=== PATIENT | female | born 1970 | race Caucasian/White ===

== ENCOUNTER 2021-02-02 17:18 | Emergency (ER) | payer MEDICAID, MEDICARE ==
[~2021-02-02] VITALS: Ht 154.9 cm; Wt 66.0 kg
[2021-02-02] MEDS ORDERED: IBUPROFEN 600MG TABLET PO ONE (18:15)
[2021-02-02 19:04] LABS: UCG SCREEN NEGATIVE
[2021-02-02] MEDS ORDERED: IBUP-2029 MT (20:10)
[2021-02-02 20:22] VITALS: BP 139/78
== END 2021-02-02 20:24 | disposition home or self-care (01) ==
LOC: ER 17:18
DX: S32.2XXA Fracture of coccyx, initial encounter for closed fracture (principal); X58.XXXA Exposure to other specified factors, initial encounter; Y93.89 Activity, other specified; Y92.89 Other specified places as the place of occurrence of the external cause; Y99.8 Other external cause status
CPT/HCPCS: 72220; 81025; 99283; 99284

== ENCOUNTER 2022-07-08 20:51 | Emergency (ER) | payer MEDICAID, OTHER ==
[~2022-07-08] VITALS: Ht 170.2 cm; Wt 63.5 kg
[~2022-07-08 20:51] MED LIST: IBUP-2029 MT
[2022-07-08 20:55] VITALS: BP 142/88
[2022-07-08] MEDS ORDERED: KETOROLAC 60MG/2ML VIAL IM STA (23:03)
[2022-07-09] MEDS ORDERED: CYCL5TAB PO (01:20)
[2022-07-09] MEDS ORDERED: NAPR-681 PO (01:20)
== END 2022-07-09 01:40 | disposition home or self-care (01) ==
LOC: ER 20:51
DX: S16.1XXA Strain of muscle, fascia and tendon at neck level, initial encounter (principal); S20.211A Contusion of right front wall of thorax, initial encounter; R51.9 Headache, unspecified; Z98.890 Other specified postprocedural states; V43.52XA Car driver injured in collision with other type car in traffic accident, initial encounter; Y93.89 Activity, other specified; Y92.488 Other paved roadways as the place of occurrence of the external cause
CPT/HCPCS: 71045; 81025; 93005; 96372; 99283; J1885